=== PATIENT | female | born 1955 | race African-American/Black ===

== ENCOUNTER 2017-03-20 15:29 | Emergency (ER) | payer BC ==
[~2017-03-20] VITALS: Ht 165.1 cm; Wt 56.0 kg
[2017-03-20 15:33] VITALS: BP 139/86
[2017-03-20] MEDS ORDERED: [UNRECOGNIZED DRUG - OTHER] (15:44)
[2017-03-20] MEDS ORDERED: CLOT10TR MM (15:44)
[2017-03-20] MEDS ORDERED: CHOL400T15 PO (15:44)
[2017-03-20] MEDS ORDERED: FAMO20TA8 PO (15:44)
[2017-03-20] MEDS ORDERED: AZIT250T12 PO (15:44)
[2017-03-20] MEDS ORDERED: [UNRECOGNIZED DRUG - OTHER] (15:44)
[2017-03-20] MEDS ORDERED: METO-396 PO (15:44)
[2017-03-20] MEDS ORDERED: PRED5TAB48 PO (15:44)
[2017-03-20] MEDS ORDERED: MIDO5TAB PO (15:44)
[2017-03-20] MEDS ORDERED: ESCI20TA36 PO (15:44)
[2017-03-20] MEDS ORDERED: VALG450T3 PO (15:44)
[2017-03-20] MEDS ORDERED: ASPI-1159 PO (15:44)
[2017-03-20] MEDS ORDERED: PANT20TA3 PO (15:44)
== END 2017-03-20 17:17 | disposition left against medical advice (07) ==
LOC: ER 16:34
DX: R51 Headache (principal); Z53.21 Procedure and treatment not carried out due to patient leaving prior to being seen by health care provider